=== PATIENT | male | born 1995 | race Caucasian/White ===

== ENCOUNTER 2019-11-28 15:21 | Emergency (ER) | payer BC, OTHER ==
--- NOTE | 2019-11-28 16:12 | EDPHYS ---
Physician Documentation [facility] Name: Lucio Saenz Age: 24 yrs Sex: Male : 1995 Arrival Date: 11/28/2019 Time: 15:26 Bed 8 Private MD: ED Physician Joe Roper HPI: 11/27 16:29 This 24 yrs old Male presents to ER via Ambulatory with complaints of Allergy kb Symptoms, Flu Symptoms. 16:29 The patient presents with sore throat. The patient describes throat pain as constant. kb Onset: The symptoms/episode began/occurred 4 day(s) ago. Severity of symptoms: At their worst the symptoms were moderate, in the emergency department the symptoms have improved, moderately. Modifying factors: The symptoms are alleviated by nothing, the symptoms are aggravated by nothing. Associated signs and symptoms: Pertinent positives: Sore throat Pertinent negatives chest pain, chills, cough, diarrhea, dysphagia, earache, fever, flu-like symptoms, headache, nausea, rhinorrhea, shortness of breath, vomiting. The patient has not experienced similar symptoms in the past. The patient has not recently seen a physician. Pt reports sore throat started 4 days ago and has been getting better, but was sent home from work so he came to get a note to return. . Historical: - Allergies: 15:37 No Known Allergies; ll1 - PSHx: 15:37 None; ll1 - Immunization history:: Flu vaccine is up to date. - Social history:: Smoking status: Patient denies any tobacco usage or history of. Patient/guardian denies using alcohol, street drugs, tobacco products. ROS: 16:26 Constitutional: Negative for fever, chills, and weight loss, Neck: Negative for injury, kb pain, and swelling, Cardiovascular: Negative for chest pain, palpitations, and edema, Respiratory: Negative for shortness of breath, cough, wheezing, and pleuritic chest pain, Abdomen/GI: Negative for abdominal pain, nausea, vomiting, diarrhea, and constipation, Back: Negative for injury and pain, MS/Extremity: Negative for injury and deformity, Skin: Negative for injury, rash, and discoloration, Neuro: Negative for headache, weakness, numbness, tingling, and seizure. 16:26 ENT: Positive for sore throat. Exam: 16:29 Constitutional: This is a well developed, well nourished patient who is awake, alert, kb and in no acute distress. Head/Face: Normocephalic, atraumatic. Neck: Trachea midline, no thyromegaly or masses palpated, and no cervical lymphadenopathy. Supple, full range of motion without nuchal rigidity, or vertebral point tenderness. No Meningismus. Chest/axilla: Normal chest wall appearance and motion. Nontender with no deformity. No lesions are appreciated. Cardiovascular: Regular rate and rhythm with a normal S1 and S2. No gallops, murmurs, or rubs. Normal PMI, no JVD. No pulse deficits. Respiratory: Lungs have equal breath sounds bilaterally, clear to auscultation and percussion. No rales, rhonchi or wheezes noted. No increased work of breathing, no retractions or nasal flaring. Abdomen/GI: Soft, non-tender, with normal bowel sounds. No distension or tympany. No guarding or rebound. No evidence of tenderness throughout. Skin: Warm, dry with normal turgor. Normal color with no rashes, no lesions, and no evidence of cellulitis. MS/ Extremity: Pulses equal, no cyanosis. Neurovascular intact. Full, normal range of motion. Neuro: Awake and alert, GCS 15, oriented to person, place, time, and situation. Cranial nerves II-XII grossly intact. Motor strength 5/5 in all extremities. Sensory grossly intact. Cerebellar exam normal. Normal gait. 16:29 ENT: Posterior pharynx: Airway: normal, no evidence of obstruction, Tonsils: are normal in appearance, Uvula: normal, midline, swelling, is not appreciated, erythema, that is moderate, exudate, is not appreciated. Vital Signs: 15:34 BP 151 / 86; Pulse 83; Resp 17; Temp 98.1; Pulse Ox 99% ; Pain 0/10; ll1 MDM: 15:33 Patient medically screened. kb 16:09 Data reviewed: vital signs, nurses notes. Data interpreted: Pulse oximetry: on room air kb is 99 %. Interpretation: normal. Counseling: I had a detailed discussion with the patient and/or guardian regarding: the historical points, exam findings, and any diagnostic results supporting the discharge/admit diagnosis, lab results, the need for outpatient follow up, a family practitioner, to return to the emergency department if symptoms worsen or persist or if there are any questions or concerns that arise at home. 11/27 15:37 Order name: Strep; Complete Time: 16:09 kb 11/27 16:10 Order name: Throat Culture EDMS Administered Medications: No medications were administered Disposition: 16:37 Co-signature as Attending Physician, Joe Roper MD. rn Disposition: 11/28/19 16:11 Discharged to Home. Impression: Pain in throat, Encounter for issue of other medical certificate. - Condition is Stable. - Discharge Instructions: Sore Throat, [id number]. - Work release form, Medication Reconciliation Form, Thank You Letter, Antibiotic Education, Prescription Opioid Use form. - Follow up: Emergency Department; When: As needed; Reason: Worsening of condition. Follow up: Private Physician; When: 2 - 3 days; Reason: Recheck today's complaints, Continuance of care, Re-evaluation by your physician. Signatures: Dispatcher [employer] EDTX Mireya Jackman, WIPING CLOTH CUTTER-C WIPING CLOTH CUTTER-Ckb Christi Simmons, RN Joe Blandon MD MD rn Lewis, Lynsay, RN RN ll1 Corrections: (The following items were deleted from the chart) 16:20 16:11 11/28/2019 16:11 Discharged to Home. Impression: Pain in throat; Encounter for iw issue of other medical certificate. Condition is Stable. Forms are Medication Reconciliation Form, Thank You Letter, Antibiotic Education, Prescription Opioid Use. Follow up: Emergency Department; When: As needed; Reason: Worsening of condition. Follow up: Private Physician; When: 2 - 3 days; Reason: Recheck today's complaints, Continuance of care, Re-evaluation by your physician. kb
--- NOTE | 2019-11-28 16:12 | ER ---
Nurse's Notes [facility] Name: Lucio Saenz Age: 24 yrs Sex: Male : 1995 Arrival Date: 11/28/2019 Time: 15:26 Bed 8 Private MD: Diagnosis: Pain in throat;Encounter for issue of other medical certificate Presentation: 11/27 15:34 Chief complaint: Patient states: Slight sore throat and nasal congestion for 4 days, ll1 better today. No fever. Needs work note. Coronavirus screen: Proceed with normal triage. Patient denies a cough. Patient denies shortness of breath or difficulty breathing. Patient denies measured and/or subjective temperature greater than 100.4F prior to today's visit. Patient denies travel on a cruise ship or to a country the [facility] currently lists as an affected area. Patient denies contact with known and/or suspected case of COVID-19. Ebola Screen: Patient denies travel to an Ebola-affected area in the 21 days before illness onset. Onset: The symptoms/episode began/occurred 3 day(s) ago. Anaphylaxis evaluation, no signs or symptoms of anaphylaxis were noted. Initial Sepsis Screen: Does the patient meet any 2 criteria? No. Patient's initial sepsis screen is negative. Risk Assessment: Do you want to hurt yourself or someone else? Patient reports no desire to harm self or others. Onset of symptoms was November 26, 2019. 15:34 Method Of Arrival: Ambulatory ll1 15:34 Acuity: [place] 4 ll1 15:55 Initial Sepsis Screen: Does the patient have a suspected source of infection? No. ph Patient's initial sepsis screen is negative. Historical: - Allergies: 15:37 No Known Allergies; ll1 - PSHx: 15:37 None; ll1 - Immunization history:: Flu vaccine is up to date. - Social history:: Smoking status: Patient denies any tobacco usage or history of. Patient/guardian denies using alcohol, street drugs, tobacco products. Screenin:40 Abuse screen: Denies threats or abuse. Denies injuries from another. Nutritional ph screening: No deficits noted. Tuberculosis screening: No symptoms or risk factors identified. Fall Risk None identified. Assessment: 15:54 General: Appears in no apparent distress. comfortable, slender, well groomed, Behavior ph is calm, cooperative, appropriate for age, Denies fever. Pain: Denies pain. Neuro: Level of Consciousness is awake, alert, obeys commands, Oriented to person, place, time, situation. Cardiovascular: Capillary refill < 3 seconds in bilateral fingers Patient's skin is warm and dry. Respiratory: Airway is patent Respiratory effort is even, unlabored, Respiratory pattern is regular, symmetrical, Breath sounds are clear bilaterally. GI: No signs and/or symptoms were reported involving the gastrointestinal system. EENT: Reports nasal congestion. Derm: Skin is intact, is healthy with good turgor, Skin is pink, warm \T\ dry. Musculoskeletal: Circulation, motion, and sensation intact. Range of motion: intact in all extremities. Vital Signs: 15:34 BP 151 / 86; Pulse 83; Resp 17; Temp 98.1; Pulse Ox 99% ; Pain 0/10; ll1 ED Course: 15:26 Patient arrived in ED. fj1 15:30 Mireya Jackman FNP-C is [facility]. kb 15:30 Joe Roper MD is Attending Physician. kb 15:36 Triage completed. ll1 15:37 Arm band placed on Patient placed in an exam room, on a stretcher. ll1 15:39 Nemo Storey, RN is Primary Nurse. ph 15:40 Patient has correct armband on for positive identification. Bed in low position. Call ph light in reach. Side rails up X 1. Pulse ox on. NIBP on. Door closed. Noise minimized. Warm blanket given. 16:20 No provider procedures requiring assistance completed. Patient did not have IV access iw during this emergency room visit. Administered Medications: No medications were administered Outcome: 16:11 Discharge ordered by . kb 16:20 Discharged to home ambulatory. iw 16:20 Condition: good 16:20 Discharge instructions given to patient, Instructed on discharge instructions, follow up and referral plans. Demonstrated understanding of instructions, follow-up care. 16:20 Patient left the ED. iw Signatures: Mireya Jackman FNP-C FNP-Ckb Williams, Irene, RN RN Neom Storey RN RN Francisco Mai [facility] kC Michael RN RN [facility]
[2019-11-28 16:26] VITALS: BP 151/86; TEMP 98.1; O2SAT 99
== END 2019-11-28 16:20 | disposition home or self-care (01) ==
LOC: ER 15:21
DX: J02.9 Acute pharyngitis, unspecified (principal); Z02.79 Encounter for issue of other medical certificate
CPT/HCPCS: 87070; 87081; 99283